=== PATIENT | female | born 1965 | race Asian ===

== ENCOUNTER 2017-04-05 19:19 | Emergency (ER) | payer OTHER ==
[~2017-04-05] VITALS: Ht 165.1 cm; Wt 54.2 kg
[~2017-04-05 19:19] MED LIST: CALTTAB2 PO; DIPH50TA PO; HYDR-3133 PO; PRED20 PO; TAB-TAB PO; TENO300 PO; [UNRECOGNIZED DRUG - OTHER]
[2017-04-05 19:34] VITALS: BP 114/63; PULSE 59; RESP 20; TEMP 98.8; O2SAT 99
[2017-04-05] MEDS ORDERED: VIRE300T2 PO (19:45)
[2017-04-05] MEDS ORDERED: KETOROLAC TROMETHAMINE 60 MG/2 ML (IM) VIAL IM ONE (20:15)
[2017-04-05] MEDS ORDERED: ROBA500T PO (20:20)
[2017-04-05] MEDS ORDERED: IBUP800T23 PO (20:20)
--- NOTE | 2017-04-05 20:20 | PD ---
HPI Chief Complaint: Back/ Neck Pain or Injury Time Seen by Provider: 20:06 Travel History International Travel<30 days: No Contact w/Intl Traveler<30days: No Traveled to known affect area: No History of Present Illness HPI 51-year-old female presents emergency department for evaluation of left upper back pain and muscle spasm 2 days. Patient reports she recently went to the chiropractor and has been starting a workout regimen and feels the left upper back is become increasingly more painful, stiff and now has a muscle spasm. She reports the pain is worse with movement of the neck and relieved with rest. Symptom severity is moderate. She denies fever, chills, headache, numbness or weakness in the upper extremities. [facility] Past Medical History Medical History: Denies Significant Hx Diminished Hearing: No Hepatitis: Yes (C) Immunizations Current: Yes Tetanus Vaccination: < 5 Years Influenza Vaccination: Yes (2016) ?: Unknown LMP: 3 WEEKS AGO Social History Alcohol Use: No Tobacco Use: No Substance Use: No Allergies-Medications (Allergen,Severity, Reaction): Coded Allergies: No Known Allergies (Verified , 04/05/17) Reported Meds & Prescriptions Reported Meds & Active Scripts Active Reported Viread (Tenofovir Disoproxil Fumarate) 300 Mg Tab 300 Mg PO DAILY Review of Systems Except as stated in HPI: all other systems reviewed are Neg Physical Exam Narrative GENERAL: Well-nourished, well-developed patient. SKIN: Focused skin assessment warm/dry. HEAD: Normocephalic. EYES: No scleral icterus. No injection or drainage. NECK: Supple, trachea midline. No JVD or lymphadenopathy. No midline cervical spine tenderness. Left sided trapezius muscle spasm and tender to palpation. CARDIOVASCULAR: Regular rate and rhythm without murmurs, gallops, or rubs. RESPIRATORY: Breath sounds equal bilaterally. No accessory muscle use. GASTROINTESTINAL: Abdomen soft, non-tender, nondistended. MUSCULOSKELETAL: No cyanosis, or edema. 5 out of 5 strength in upper extremities. Normal sensation in hands. Equal hand grasp BACK: Nontender without obvious deformity. No CVA tenderness. Data Data Last Documented VS Vital Signs Date Time Temp Pulse Resp B/P (MAP) Pulse Ox O2 Delivery O2 Flow Rate FiO2 04/05/17 19:34 98.8 59 20 114/63 (80) 99 Orders Orders Ketorolac Inj (Toradol Inj) (04/05/17 20:15) [facility] Medical Decision Making Medical Screen Exam Complete: Yes Emergency Medical Condition: Yes Differential Diagnosis Trapezius muscle spasm, cervical radiculopathy, cervical strain Narrative Course 51-year-old female with chief complaint of left upper back pain and muscle spasm in 2 days. On exam patient has tenderness over the left trapezius muscle which is spasms. Patient be treated for muscle spasm. Return precautions discussed. Patient advised to follow up PCP. Patient verbalizes understanding and agrees to plan Diagnosis Primary Impression: Trapezius muscle spasm Referrals: Primary Care Physician Additional Instructions: Take the medications as prescribed. Avoid heavy lifting or strenuous activity. Use heat or ice for muscle spasm relief. Scripts Methocarbamol (Robaxin) 500 Mg Tab 500 MG PO TID for Muscle Spasm, #15 TAB 0 Refills Prov: Caitlin Frank 04/05/17 Ibuprofen (Ibuprofen) 800 Mg Tab 800 MG PO Q6HR Y for PAIN, #30 TAB 0 Refills Prov: Caitlin Frank 04/05/17 Disposition: 01 DISCHARGE HOME Condition: Stable Caitlin Frank Apr 05, 2017 20:20
== END 2017-04-05 20:32 | disposition home or self-care (01) ==
LOC: PHEFT 19:19
DX: M62.830 Muscle spasm of back (principal)
CPT/HCPCS: 96372; 99284; J1885

== ENCOUNTER 2017-05-02 18:16 | Emergency (ER) | payer OTHER ==
[~2017-05-02] VITALS: Ht 170.2 cm; Wt 54.0 kg
[~2017-05-02 18:16] MED LIST changes: -CALTTAB2 PO; -DIPH50TA PO; -HYDR-3133 PO; +IBUP800T23 PO; -PRED20 PO; +ROBA500T PO; -TAB-TAB PO; -TENO300 PO; +VIRE300T2 PO; -[UNRECOGNIZED DRUG - OTHER]
[2017-05-02 18:21] VITALS: BP 120/68; PULSE 75; RESP 16; TEMP 97.7; O2SAT 99
[2017-05-02] MEDS ORDERED: CALTCHW5 PO (18:33)
[2017-05-02] MEDS ORDERED: AUGM875T3 PO (18:33)
[2017-05-02] MEDS ORDERED: MULTTAB27 PO (18:33)
--- NOTE | 2017-05-02 19:38 | PD ---
HPI Chief Complaint: GI Complaint Time Seen by Provider: 19:23 Travel History International Travel<30 days: No Contact w/Intl Traveler<30days: No Traveled to known affect area: No History of Present Illness HPI 51-year-old female complains generalized malaise and weakness, coughing, nausea vomiting. Patient states that she started having scratchy throat and sneezing about 6 days ago. Patient took Daypro for that. Patient was seen by personal physician 3 days ago and was diagnosed with the infection. Patient was given prescription for amoxicillin to be taken twice a day. Patient has been taking amoxicillin as directed. Patient started having nausea vomiting today. Patient has poor appetite today. Patient states that she has increasing generalized malaise and weakness for the past 6 days. Patient states that she had intermittent productive cough. Patient denies any chest pain or shortness of breath. Patient denies abdominal pain. Patient denies any focal weakness or numbness of extremity. Patient had blood tests done in November of this year and was told that she has borderline diabetes. Patient has family history of diabetes. Patient has history of hepatitis B. [facility] Past Medical History Diminished Hearing: No Hepatitis: Yes (B) Immunizations Current: Yes Influenza Vaccination: No ?: Not Social History Alcohol Use: No Tobacco Use: No Substance Use: No Allergies-Medications (Allergen,Severity, Reaction): Coded Allergies: No Known Allergies (Verified , 05/02/17) Reported Meds & Prescriptions Reported Meds & Active Scripts Active Reported Multi-Day Vitamins (Multiple Vitamin) 1 Tab Tab 1 Mg PO DAILY Caltrate 600+D Chew (Calcium Carbonate-Vitamin D Chew) 600-400 Mg-Unit Chew 1 Tab PO BID Augmentin (Amoxicillin-Clavulanate) 875-125 Mg Tab 1 Tab PO BID Viread (Tenofovir Disoproxil Fumarate) 300 Mg Tab 300 Mg PO DAILY Review of Systems General / Constitutional: No: Fever Eyes: No: Visual changes HENT: No: Headaches Cardiovascular: No: Chest Pain or Discomfort Respiratory: Positive: Cough, No: Shortness of Breath Gastrointestinal: Positive: Nausea, Vomiting, No: Abdominal Pain Genitourinary: No: Dysuria Musculoskeletal: No: Pain Skin: No Rash Neurologic: No: Weakness Psychiatric: No: Depression Endocrine: No: Polydipsia Hematologic/Lymphatic: No: Easy Bruising Physical Exam Narrative GENERAL: Well-nourished, well-developed patient. SKIN: Focused skin assessment warm/dry. HEAD: Normocephalic. EYES: No scleral icterus. No injection or drainage. TM: Nonerythematous no effusion. Throat: Nonerythematous. NECK: Supple, trachea midline. No JVD or lymphadenopathy. No meningismus CARDIOVASCULAR: Regular rate and rhythm without murmurs, gallops, or rubs. RESPIRATORY: Breath sounds equal bilaterally. No accessory muscle use. GASTROINTESTINAL: Abdomen soft, non-tender, nondistended. MUSCULOSKELETAL: No cyanosis, or edema. BACK: Nontender without obvious deformity. No CVA tenderness. Neurologic exam normal. Data Data Last Documented VS Vital Signs Date Time Temp Pulse Resp B/P (MAP) Pulse Ox O2 Delivery O2 Flow Rate FiO2 05/02/17 18:21 97.7 75 16 120/68 (85) 99 Orders Orders Complete Blood Count With Diff (05/02/17 19:31) Comprehensive Metabolic Panel (05/02/17 19:31) Urinalysis - C+S If Indicated (05/02/17 19:31) Influenzae A/B Antigen (05/02/17 19:31) Chest, Single Ap (05/02/17 19:31) Iv Access Insert/Monitor (05/02/17 19:31) Ecg Monitoring (05/02/17 19:31) Oximetry (05/02/17 19:31) Sodium Chlor 0.9% 1000 Ml Inj (Ns 1000 M (05/02/17 19:45) Ondansetron Inj (Zofran Inj) (05/02/17 19:45) Labs Laboratory Tests Test 05/02/17 19:45 05/02/17 20:05 Urine Color YELLOW Urine Turbidity CLEAR Urine pH 7.5 Urine Specific [place] 1.022 Urine Protein NEG mg/dL Urine Glucose (UA) NEG mg/dL Urine Ketones 15 mg/dL Urine Occult Blood NEG Urine Nitrite NEG Urine Bilirubin NEG Urine Leukocyte Esterase NEG Urine RBC 0-3 /hpf Urine WBC 0-2 /hpf Urine Squamous Epithelial Cells 0-5 /hpf Urine Amorphous Sediment SMALL Urine Mucus OCC /lpf Microscopic Urinalysis Comment CULT NOT INDICATED White Blood Count 8.5 TH/MM3 Red Blood Count 4.59 MIL/MM3 Hemoglobin 13.1 GM/DL Hematocrit 40.2 % Mean Corpuscular Volume 87.5 FL Mean Corpuscular Hemoglobin 28.5 PG Mean Corpuscular Hemoglobin Concent 32.5 % Red Cell Distribution Width 12.4 % Platelet Count 209 TH/MM3 Mean Platelet Volume 8.8 FL Neutrophils (%) (Auto) 83.2 % Lymphocytes (%) (Auto) 13.5 % Monocytes (%) (Auto) 1.8 % Eosinophils (%) (Auto) 0.3 % Basophils (%) (Auto) 1.2 % Neutrophils # (Auto) 7.0 TH/MM3 Lymphocytes # (Auto) 1.2 TH/MM3 Monocytes # (Auto) 0.2 TH/MM3 Eosinophils # (Auto) 0.0 TH/MM3 Basophils # (Auto) 0.1 TH/MM3 CBC Comment DIFF FINAL Differential Comment Blood Urea Nitrogen 16 MG/DL Creatinine 0.71 MG/DL Random Glucose 97 MG/DL Total Protein 8.5 GM/DL Albumin 3.6 GM/DL Calcium Level 8.7 MG/DL Alkaline Phosphatase 67 U/L Aspartate Amino Transf (AST/SGOT) 28 U/L Alanine Aminotransferase (ALT/SGPT) 32 U/L Total Bilirubin 0.3 MG/DL Sodium Level 137 MEQ/L Potassium Level 3.7 MEQ/L Chloride Level 102 MEQ/L Carbon Dioxide Level 27.0 MEQ/L Anion Gap 8 MEQ/L Estimat Glomerular Filtration Rate 87 ML/[facility] Medical Decision Making Medical Screen Exam Complete: Yes Emergency Medical Condition: Yes Interpretation(s) Last Impressions Chest X-Ray 05/02/171930 Signed Impressions: Service Date/Time: Tuesday, May 02, 2017 20:13 - CONCLUSION: No acute disease. Ric Meraz MD 0 p.m. CBC within normal limit. CMP within normal limit. UA is negative. Influenza AB antigen negative. Differential Diagnosis Differential diagnosis including viral syndrome, electrolyte abnormality, dehydration, pneumonia, sepsis. Narrative Course 51-year-old female with generalized malaise and weakness, coughing, nausea vomiting. Normal saline solution 1 L IV bolus. Zofran 4 mg IV. Diagnosis Primary Impression: Viral syndrome Patient Instructions: General Instructions Additional Instructions: Stop amoxicillin. Tylenol ibuprofen for aching pain. Follow-up with personal physician. Encourage by mouth fluid bed rest. Return if worse. Med/Other Pt SpecificInfo: Med Stopped Disposition: DISCHARGE HOME Condition: Stable Gio Covarrubias MD May 02, 2017 19:38
[2017-05-02] MEDS ORDERED: SODIUM CHLOR 0.9% 1000 ML INJ 1,000 ML IV ONE (19:45)
[2017-05-02] MEDS ORDERED: ONDANSETRON HCL 4 MG/2 ML VIAL IV PUSH ONE (19:45)
[2017-05-02 20:01] LABS: BLOOD, URINE NEG (NEG); GLUCOSE,URINE NEG (NEG); KETONE, URINE 15 mg/dL (NEG); NITRITE,URINE NEG (NEG); PH, URINE 7.5 (5.0-8.5)
[2017-05-02 20:09] LABS: MUCUS URINE OCC /lpf (OCC); SQUAMOUS EPITHELIAL CELL URINE 0-5 /hpf (0-5); URINE COLOR YELLOW (YELLW/STRAW)
[2017-05-02 20:10] LABS: COMMENT (UR) CULT NOT INDICATED; CULTURE IF INDICATED CULT NOT INDICATED; RBC, URINE 0-3 /hpf (0-3); WBC, URINE 0-2 /hpf (0-5)
[2017-05-02 20:20] VITALS: BP 114/65; PULSE 61; RESP 20; TEMP 98.2; O2SAT 99
[2017-05-02 20:21] LABS: BASOPHIL # 0.1 TH/MM3 (0-0.2); BASOPHIL % 1.2 % (0.0-2.0); CHLORIDE 102 MEQ/L (98-107); EOSINOPHIL % 0.3 % (0.0-4.0); HEMATOCRIT 40.2 % (35.0-46.0); LYMPH % 13.5 % (9.0-44.0); LYMPHOCYTE # 1.2 TH/MM3 (1.0-4.8); MEAN CELL VOLUME 87.5 FL (80.0-100.0); MEAN CORPUSCULAR HEMOGLOBIN 28.5 PG (27.0-34.0); MEAN CORPUSCULAR HGB CONC 32.5 % (32.0-36.0); MONO % 1.8 % (0.0-8.0); NEUT % 83.2 % (16.0-70.0); PLATELET COUNT 209 TH/MM3 (150-450); POTASSIUM 3.7 MEQ/L (3.5-5.1); RED BLOOD COUNT 4.59 MIL/MM3 (4.00-5.30); RED CELL DISTRIBUTION WIDTH 12.4 % (11.6-17.2); SODIUM (NA) 137 MEQ/L (136-145); WHITE BLOOD COUNT 8.5 TH/MM3 (4.0-11.0)
[2017-05-02 20:25] LABS: ANION GAP 8 MEQ/L (5-15); BLOOD UREA NITROGEN 16 MG/DL (7-18)
[2017-05-02 20:28] LABS: ALT (GPT) 32 U/L (10-53); AST (GOT) 28 U/L (15-37); GLOMERULAR FILTRATION RATE 87 ML/MIN (>89)
[2017-05-02 20:29] LABS: TOTAL BILIRUBIN ADULT 0.3 MG/DL (0.2-1.0)
[2017-05-02 20:30] LABS: ALKALINE PHOSPHATASE 67 U/L (45-117)
[2017-05-02 20:31] LABS: HEMO FLAGS DIFF FINAL
--- NOTE | 2017-05-02 20:37 | RADRPT ---
EXAM DATE/TIME: 05/02/2017 20:13 [place] COMPARISON: No previous studies available for comparison. INDICATIONS : Cough. MEDICAL HISTORY : None. SURGICAL HISTORY : None. ENCOUNTER: Initial ACUITY: 1 day PAIN SCORE: 0/10 LOCATION: Bilateral chest FINDINGS: A single view of the chest demonstrates the lungs to be symmetrically aerated without evidence of mas s, infiltrate or effusion. The cardiomediastinal contours are unremarkable. Osseous structures are intact. CONCLUSION: No acute disease. Ric Meraz MD on May 02, 2017 at 20:36 Board Certified Radiologist. This report was verified electronically.
[2017-05-02 21:39] VITALS: BP 117/62
== END 2017-05-02 21:51 | disposition home or self-care (01) ==
LOC: PHED 18:16
DX: B34.9 Viral infection, unspecified (principal); R53.81 Other malaise; R53.1 Weakness; R05 Cough; R11.2 Nausea with vomiting, unspecified; R09.89 Other specified symptoms and signs involving the circulatory and respiratory systems; R06.7 Sneezing; R73.03 Prediabetes; Z86.19 Personal history of other infectious and parasitic diseases
CPT/HCPCS: 71010; 80053; 81001; 85025; 87804; 96361; 96374; 99284; J2405; J7030